=== PATIENT | male | born 1985 | race African-American/Black ===

== ENCOUNTER 2022-08-22 12:45 | Emergency (ER) | payer OTHER, SELFPAY ==
[2022-08-22 12:59] VITALS: BP 148/97; PULSE 74; RESP 16; TEMP 37.1; O2SAT 100
--- NOTE | 2022-08-22 13:00 | ED.DENTAL ---
HPI - Dental/Oral General Chief complaint: Dental/Oral Stated complaint: Back right tooth pain Source: patient and RN notes reviewed History of Present Illness HPI Narrative: 36-year-old male presents to urgent care with complaints of a right upper dental pain. Patient states has been hurting since yesterday. Patient reports associated facial swelling. Patient states the pain and is making him not want to eat or drink anything. Denies any fevers, chills, vomiting, trouble swallowing, trouble breathing. Patient has a dentist appointment but not for another 2 months. Some parts of this dictation were generated by voice recognition software and may contain typographical and/or grammatical inaccuracies. Related Data Allergies Allergy/AdvReac Type Severity Reaction Status Date / Time No Known Allergies Allergy Verified 08/22/22 12:52 Review of Systems Review of Systems: Pertinent positives and pertinent negatives per HPI. PMFSH Comments At the time of my signature, I reviewed and agree with the nursing past medical, surgical, social, and family history. There is no relevant family history pertinent to the patient complaint. Exam Narrative: GENERAL: This is a well-nourished, well-developed patient, in no apparent distress. HEAD: normocephalic, atraumatic. EYES: Sclera clear/white. Vision is grossly intact. EARS: External ears normal, auditory canals clear and without drainage. Hearing grossly intact. NOSE: External nose normal with no obvious nasal discharge, nares without redness, no rhinorrhea. THROAT: Mucous membranes moist, posterior pharynx clear. MOUTH: Tooth #32 Appears impacted as well edematous around the gums. NECK: Neck supple, non-tender without lymphadenopathy, masses or thyromegaly. CARDIOVASCULAR: Regular rate and rhythm without murmurs, gallops, or rubs. RESPIRATORY: Clear to auscultation. Breath sounds equal bilaterally. No wheezes, rales, or rhonchi. SKIN: warm, intact with no suspicious lesions or rash, good texture and turgor. NEURO: awake, alert, and oriented to person, place and time. There were no obvious focal neurologic abnormalities. Course Course Level of Care: Express Care Visit Vital Signs Vital signs: Vital Signs Temperature 98.8 F 08/22/22 12:59 Pulse Rate 74 08/22/22 12:59 Respiratory Rate 16 08/22/22 12:59 Blood Pressure 148/97 H 08/22/22 12:59 Pulse Oximetry 100 08/22/22 12:59 Oxygen Delivery Room Air 08/22/22 12:59 Temperature 98.8 F 08/22/22 12:59 Pulse Rate 74 08/22/22 12:59 Respiratory Rate 16 08/22/22 12:59 Blood Pressure 148/97 H 08/22/22 12:59 Pulse Oximetry 100 08/22/22 12:59 Oxygen Delivery Room Air 08/22/22 12:59 reviewed MDM - Dental/Oral MDM Narrative Medical decision making narrative: May call Ke @ [address] [address] hrs: Fri-Fri 8:30-5:00 Sat 8-no [phone] [place] take the antibiotics as directed. Follow up with a dentist as soon as possible. Differential Diagnosis Differential diagnosis: Likely gingival abscess, dental caries and dental abscess Critical Care Time Critical Care Time Critical Care Time: No Discharge Plan Discharge Clinical Impression: Dental abscess Patient Disposition: Home, Self-Care Condition: Stable Instructions: Antibiotic Form, Dental Abscess (ED) Additional Instructions: May call Ke @ [address] [address] hrs: Fri-Fri 8:30-5:00 Sat 8-no [phone] [place] take the antibiotics as directed. Follow up with a dentist as soon as possible. Prescriptions: New amoxicillin 500 mg capsule 500 mg PO Q12H Qty: 20 0RF lidocaine HCl [Lidocaine Viscous] 2 % solution 1 appl
== END 2022-08-22 13:17 | disposition home or self-care (01) ==
PROVIDERS: Emergency Provider Nurse Practitioner Family
DX: K04.7 Periapical abscess without sinus (principal)
CPT/HCPCS: 99213; G0463

== ENCOUNTER 2024-02-10 12:40 | Emergency (ER) | payer OTHER, SELFPAY ==
[2024-02-10 12:53] VITALS: BP 150/106; PULSE 75; RESP 20; TEMP 36.8; O2SAT 100
--- NOTE | 2024-02-10 13:39 | ED.DENTAL ---
HPI - Dental/Oral General Chief complaint: Dental/Oral Stated complaint: tooth pain Time Seen by Provider: 02/10/24 13:39 Source: patient, RN notes reviewed and old records reviewed Mode of arrival: ambulatory Limitations: no limitations History of Present Illness HPI Narrative: Patient presents with complaints of dental pain. He reports that he has poor dentition at baseline, had a tooth break about 4 days ago, has had pain and gingival swelling ever since. He does have a dental appointment scheduled for March 11, 2024. Has been taking Aleve for pain with moderate relief. He denies any fever, chills, sweats. He denies all other injury and trauma. He is not having in difficulty swallowing. There is no associated facial swelling. Related Data Allergies Allergy/AdvReac Type Severity Reaction Status Date / Time No Known Allergies Allergy Verified 02/10/24 12:47 Review of Systems Review of Systems: All systems reviewed & are unremarkable except as noted in HPI and below Constitutional: Constitutional: Reports no additional constitutional complaints ENT: Reports system reviewed and no additional complaints, except as documented and Reports dental pain Cardiovascular: Cardiovascular: Reports no additional cardiovascular complaints Respiratory: Respiratory: Reports no additional respiratory complaints Gastrointestinal: Gastrointestinal: Reports no additional gastrointestinal complaints PMFSH Comments At the time of my signature, I reviewed and agree with the nursing past medical, surgical, social, and family history. There is no relevant family history pertinent to the patient complaint. Exam Const: General: cooperative, no acute distress, alert and awake Orientation/consciousness: oriented to person, oriented to place and oriented to time HENMT: Head: normal to inspection Ears: TM's normal bilaterally Mouth: Yes moist mucous membranes Teeth and gingiva: fair dentition Teeth image: 1. Both teeth are decayed, broken, associated gingival swelling Throat: posterior oropharynx normal Resp: Effort & Inspection: normal respiratory effort and able to speak in complete sentences Auscultation: clear to auscultation bilaterally, no crackles, no rales, no rhonchi and no wheezes Cardio: Palpation: normal PMI Rate: regular rate Rhythm: regular rhythm Heart sounds: S1 normal heart sound present and S2 normal heart sound present Neuro: General: oriented to person, oriented to place and oriented to time Cranial nerves: Yes CN's II-XII intact bilaterally Psych: Appearance: grossly normal Thought process: Normal thought process present Insight: Good insight present (Psych) Judgement: Good judgement present (Psych) Course Course Level of Care: Express Care Visit Vital Signs Vital signs: Vital Signs Temperature 98.2 F 02/10/24 12:53 Pulse Rate 75 02/10/24 12:53 Respiratory Rate 20 02/10/24 12:53 Blood Pressure 150/106 H 02/10/24 12:53 Pulse Oximetry 100 02/10/24 12:53 Oxygen Delivery Room Air 02/10/24 12:53 Temperature 98.2 F 02/10/24 12:53 Pulse Rate 75 02/10/24 12:53 Respiratory Rate 20 02/10/24 12:53 Blood Pressure 150/106 H 02/10/24 12:53 Pulse Oximetry 100 02/10/24 12:53 Oxygen Delivery Room Air 02/10/24 12:53 Reviewed MDM - Dental/Oral MDM Narrative Medical decision making narrative: Patient with dental injury and resulting infection. Able to manage her own secretions, no drooling or stridor. Nontoxic appearing. Stable for discharge home on p.o. antibiotics. Follow with dentist and primary care provider. Emergency department for new or worse symptoms. Discharge instructions reviewed with patient, as well as provided in writing per nursing staff. The instructions also include specific and strict return/GO TO THE ER as well as f/u information. All questions have been answered, and the patient deny any further questions with discharge and discharge plan. Some parts of this dictation were generated by voice recognition software and may contain typographical and/or grammatical inaccuracies. Differential Diagnosis Differential diagnosis: Likely gingival abscess, dental caries, toothache, dental abscess and fracture of tooth Medical Records Attestation: I reviewed the patient's medical records. Discharge Plan Discharge Clinical Impression: Dental infection, Elevated blood pressure reading Patient Disposition: Home, Self-Care Condition: Stable Instructions: Antibiotic Form, Dental Abscess (ED) Additional Instructions: Take medications as prescribed. Follow-up with dentist and primary care provider. Emergency department for any new or worse symptoms Patient Language: Greenlandic Prescriptions: New amoxicillin 875 mg tablet 875 mg PO Q12H Qty: 20 0RF Follow-up/Referrals: PHYSICIAN,FILTER TANK TENDER HELPER HEAD [Primary Care Provider] - Stand Alone Forms: Work/School Release IP Time of Disposition: 13:45
== END 2024-02-10 13:57 | disposition home or self-care (01) ==
PROVIDERS: Emergency Provider Nurse Practitioner Family
DX: K04.7 Periapical abscess without sinus (principal); R03.0 Elevated blood-pressure reading, without diagnosis of hypertension
CPT/HCPCS: 99213; G0463

== ENCOUNTER 2024-05-18 12:27 | Emergency (ER) | payer OTHER, SELFPAY ==
[2024-05-18 12:31] VITALS: BP 170/95; PULSE 68; RESP 16; TEMP 36.9; O2SAT 100
--- NOTE | 2024-05-18 12:34 | ED_ITS ---
HPI - Dental/Oral General Chief complaint: Dental/Oral Stated complaint: Dental Pain Time Seen by Provider: 05/18/24 12:34 Source: patient, RN notes reviewed and old records reviewed Mode of arrival: ambulatory Limitations: no limitations History of Present Illness HPI Narrative: Patient presents with complaints of right lower dental pain. Patient admits that he has poor dentition at baseline, has had been having multiple dental problems over the past 4 months. He does have an appointment scheduled with a dentist, but this is approximately 6 weeks away. He reports right lower dental pain became much worse yesterday. He has been taking ibuprofen with minimal relief. He has no associated facial swelling, does report some discharge from the gingiva Related Data Home Medications ?Medication ?Instructions ?Recorded ?Confirmed ?Last Taken ?Type No Home Medications 05/18/24 05/18/24 Unknown History Allergies Allergy/AdvReac Type Severity Reaction Status Date / Time No Known Allergies Allergy Verified 05/18/24 12:32 Review of Systems Review of Systems: All systems reviewed & are unremarkable except as noted in HPI and below Constitutional: Constitutional: Reports no additional constitutional complaints ENT: Reports system reviewed and no additional complaints, except as documented and Reports dental pain Cardiovascular: Cardiovascular: Reports no additional cardiovascular complaints Respiratory: Respiratory: Reports no additional respiratory complaints Gastrointestinal: Gastrointestinal: Reports no additional gastrointestinal complaints PMFSH Comments At the time of my signature, I reviewed and agree with the nursing past medical, surgical, social, and family history. There is no relevant family his tory pertinent to the patient complaint. Exam Const: General: cooperative, no acute distress, alert and awake Orientation/consciousness: oriented to person, oriented to place and oriented to time HENMT: Head: normal to inspection Mouth: Yes moist mucous membranes Teeth and gingiva: caries, gingiva abnormal with purulent discharge (Right lower, no associated facial swelling) and poor dentition Resp: Effort & Inspection: normal respiratory effort and able to speak in complete sentences Auscultation: clear to auscultation bilaterally, no crackles, no rales, no rhonchi and no wheezes Cardio: Palpation: normal PMI Rate: regular rate Rhythm: regular rhythm Heart sounds: S1 normal heart sound present and S2 normal heart sound present Neuro: General: oriented to person, oriented to place and oriented to time Cranial nerves: Yes CN's II-XII intact bilaterally Psych: Appearance: grossly normal Thought process: Normal thought process present Insight: Good insight present (Psych) Judgement: Good judgement present (Psych) Course Course Level of Care: Express Care Visit Vital Signs Vital signs: Reviewed MDM - Dental/Oral MDM Narrative Medical decision making narrative: Patient in no distress, does have significant dental infection, no associated facial or neck swelling. Scant purulence drainage from the gingiva right lower. Start clindamycin, prescription strength ibuprofen. Keep scheduled dental appointment. Discharge instructions reviewed with patient, as well as provided in writing per nursing staff. The instructions also include specific and strict return/GO TO THE ER as well as f/u information. All questions have been answered, and the patient deny any further questions with discharge and discharge plan. Some parts of this dictation were generated by voice recognition software and may contain typographical and/or grammatical inaccuracies. Differential Diagnosis Differential diagnosis: Likely gingival abscess, dental caries and dental abscess Medical Records Attestation: I reviewed the patient's medical records. Discharge Plan Discharge Clinical Impression: Dental infection Patient Disposition: Home, Self-Care Condition: Stable Instructions: Antibiotic Form, Dental Abscess (ED) Additional Instructions: Take all medications as prescribed. Follow with primary care provider and dentist. Emergency department for new or worse symptoms Patient Language: Georgian Prescriptions: New clindamycin HCl [Cleocin HCl] 300 mg capsule 300 mg PO TID Qty: 30 0RF ibuprofen 800 mg tablet 800 mg PO TID PRN (Reason: pain) Qty: 30 0RF No Action No Home Medications Follow-up/Referrals: PHYSICIAN,TRANSPORTATION CLERK [Primary Care Provider] - Time of Disposition: 13:05
== END 2024-05-18 13:10 | disposition home or self-care (01) ==
PROVIDERS: Emergency Provider Nurse Practitioner Family
DX: K04.7 Periapical abscess without sinus (principal)
CPT/HCPCS: 99213; G0463

== ENCOUNTER 2024-06-21 14:45 | Emergency (ER) | payer OTHER, SELFPAY ==
[2024-06-21 14:54] VITALS: BP 192/117; PULSE 65; RESP 19; TEMP 36.2; O2SAT 100
[2024-06-21 15:05] VITALS: BP 184/114
--- NOTE | 2024-06-21 15:09 | ED.DENTAL ---
HPI - Dental/Oral General Chief complaint: Dental/Oral Stated complaint: dental pain Time Seen by Provider: 06/21/24 14:57 Source: patient and RN notes reviewed Mode of arrival: ambulatory Limitations: no limitations History of Present Illness HPI Narrative: Patient presents today complaining of right posterior lower dental pain. Currently rates his pain 7/10 and has been taking ibuprofen with minimal relief. Patient was seen last month for similar symptoms and was placed on clindamycin. He does have an appointment in June with his dentist. Upon arrival, patient's blood pressure is quite elevated and he does not have a diagnosis of hypertension, however, he has been taking quite a bit of ibuprofen. Related Data Allergies Allergy/AdvReac Type Severity Reaction Status Date / Time No Known Allergies Allergy Verified 06/21/24 15:06 Review of Systems Review of Systems: CONSTITUTIONAL: Denies body aches, fever, chills, or sweats. EYES: Denies visual changes, redness, or discharge. ENT: Denies rhinorrhea, congestion, sore throat, or otalgia.+ dental pain CARDIOVASCULAR: Denies chest pain, palpitations, or edema. RESPIRATORY: Denies cough or dyspnea. GASTROINTESTINAL: Denies abdominal pain, nausea, vomiting, or diarrhea. GENITOURINARY: Denies dysuria or hematuria. SKIN: Denies rash, itching, or wounds. MUSCULOSKELETAL: Denies back pain, joint pain, or myalgia. NEUROLOGIC: Denies headache, numbness, tingling, or weakness. PSYCH: Denies depression or anxiety. PMFSH Comments At time of signature, I have reviewed and agree with nursing past medical, surgical, social and family history unless otherwise noted. Please see nursing chart for further information. There is no relevant family history pertinent to the presenting complaint Exam Narrative: GENERAL: Well-appearing, well-nourished, and in no acute distress. HEAD: Normocephalic, atraumatic. EYES: EOMI. No redness or drainage. Conjunctivae normal. ENT: Mucous membranes pink and moist. Patient has large cavity in tooth number 31 no surrounding erythema or edema of the gumline. No obvious periapical abscess. No facial swelling, trismus. NECK: Normal AROM. Supple. No lymphadenopathy. CHEST: No respiratory distress. EXTREMITIES: Normal range of motion. No edema. SKIN: Warm, dry, no rash. Capillary refill normal. Normal skin turgor. NEURO: No focal deficits. Alert and oriented x3. Gait steady. PSYCH: Normal affect. No signs of depression or anxiety. Course Course Level of Care: Express Care Visit Vital Signs Vital signs: Vital Signs Temperature 97.2 F L 06/21/24 14:54 Pulse Rate 65 06/21/24 14:54 Respiratory Rate 19 06/21/24 14:54 Blood Pressure 192/117 H 06/21/24 14:54 Pulse Oximetry 100 06/21/24 14:54 Oxygen Delivery Room Air 06/21/24 14:54 Temperature 97.2 F L 06/21/24 14:54 Pulse Rate 65 06/21/24 14:54 Respiratory Rate 19 06/21/24 14:54 Blood Pressure 184/114 H 06/21/24 15:05 Pulse Oximetry 100 06/21/24 14:54 Oxygen Delivery Room Air 06/21/24 14:54 Reviewed MDM - Dental/Oral MDM Narrative Medical decision making narrative: Patient will be treated with a course of amoxicillin for presumed infected dental caries. He will follow-up with his dentist as scheduled in June. Patient's blood pressure is quite elevated, but he is taking ibuprofen and is experiencing some pain at this time. He has no red flag symptoms to include headache, dizziness, vision changes, chest pain or shortness of breath. He has been instructed to go to the ER if he develops any additional concerning symptoms for his blood pressure. Patient agrees with plan. Anticipatory guidance given. Differential Diagnosis Differential diagnosis: Likely gingival abscess, dental caries, toothache and dental abscess Critical Care Time Critical Care Time Critical Care Time: No Discharge Plan Discharge Clinical Impression: Dental caries Patient Disposition: Home, Self-Care Condition: Stable Instructions: Antibiotic Form, Dental Abscess (ED) Additional Instructions: Please take the amoxicillin as prescribed until gone. Use the viscous lidocaine on a Q-tip on your tooth to help with discomfort as well. As discussed, if you develop any additional symptoms to include headache, shortness of breath, chest pain, vision changes, dizziness or lightheadedness, please go to the ER immediately for further evaluation and treatment. Follow-up with your dentist as soon as possible. If high blood pressure persists, please follow-up with your PCP. Your blood pressure was elevated above 120/80 today at Urgent Care. This puts you above the threshold for follow up. Please schedule a followup visit with your personal physician as soon as possible, for further evaluation and treatment. Even blood pressure exceeding 120/80 may indicate pre-hypertension. Patient Language: Jamaican Prescriptions: New amoxicillin 875 mg tablet 875 mg PO Q12H 10 Days Qty: 20 0RF lidocaine HCl [Lidocaine Viscous] 2 % solution 1 applic mucous membrane TID PRN (Reason: pain) Qty: 15 0RF Rx Instructions: Apply to affected tooth TID PRN Follow-up/Referrals: PHYSICIAN,MIDDLEWARE DEVELOPER [Primary Care Provider] - Time of Disposition: 15:16
== END 2024-06-21 15:21 | disposition home or self-care (01) ==
PROVIDERS: Emergency Provider Nurse Practitioner
DX: K02.9 Dental caries, unspecified (principal)
CPT/HCPCS: 99213; G0463

== ENCOUNTER 2024-12-18 08:37 | Emergency (ER) | payer OTHER, SELFPAY ==
--- NOTE | 2024-12-18 08:40 | ED.GENADULT ---
HPI - General Adult General Chief complaint: Dental/Oral Stated complaint: tooth pain Time Seen by Provider: 12/18/24 08:41 Source: patient Mode of arrival: ambulatory Limitations: no limitations History of Present Illness HPI narrative: 38-year-old male patient presents to the [facility] with complaints of tooth pain to the right lower back oral cavity. Patient states it has been painful for the last 2 days states he has been taking Advil and ibuprofen for the pain. Patient states the tooth is broken and he went to his dentist about 2 months ago and they were wanting to pull it but he did not have the money at the time. Denies any fevers body aches or chills at this time. Related Data Allergies Allergy/AdvReac Type Severity Reaction Status Date / Time No Known Allergies Allergy Verified 12/18/24 08:52 Review of Systems Review of Systems: CONSTITUTIONAL: Denies fever, chills, or sweats. EYES: Denies visual changes, redness, or discharge. ENT: Denies rhinorrhea, congestion, sore throat, or otalgia. Positive right lower dental pain x2 days CARDIOVASCULAR: Denies chest pain, palpitations, or edema. RESPIRATORY: Denies cough or dyspnea. GASTROINTESTINAL: Denies abdominal pain, nausea, vomiting, or diarrhea. GENITOURINARY: Denies dysuria or hematuria. SKIN: Denies rash or itching. MUSCULOSKELETAL: Denies back pain, joint pain, or myalgia. NEUROLOGIC: Denies headache, numbness, or weakness. PSYCHIATRIC: Denies anxiety or depression. PMFSH Comments At the time of my signature I agree with nursing past medical history, surgical, social, and family history. There is no relevant family history pertinent to the presenting complaint. Exam Narrative: GENERAL: Well-appearing, well-nourished, and in no acute distress. HEAD: Normocephalic, atraumatic. EYES: PERRLA and EOMI. ENT: Nares clear, no rhinorrhea or epistaxis. Mucous membranes moist. Patient has a right lower fractured molar with surrounding erythema, tenderness to the gum area. There is no swelling noted to the cheek at this time. No obvious drainage noted NECK: Supple. No lymphadenopathy CHEST: Clear to auscultation. No respiratory distress. HEART: Regular rate and rhythm. No murmur heard. Normal peripheral pulses. ABDOMEN: Soft, nontender, nondistended, normal active bowel sounds. EXTREMITIES: Normal range of motion. No edema. SKIN: Warm, dry, no rash. NEURO: No focal deficits. Alert and oriented x3. Course Course Level of Care: Express Care Visit Vital Signs Vital signs: Vital Signs Temperature 36.7 C 12/18/24 08:45 Pulse Rate 62 12/18/24 08:45 Respiratory Rate 12/18/24 08:45 Blood Pressure 170/97 H 12/18/24 08:45 Pulse Oximetry 100 12/18/24 08:45 Oxygen Delivery Room Air 12/18/24 08:45 Temperature 36.7 C 12/18/24 08:45 Pulse Rate 62 12/18/24 08:45 Respiratory Rate 12/18/24 08:45 Blood Pressure 170/97 H 12/18/24 08:45 Pulse Oximetry 100 12/18/24 08:45 Oxygen Delivery Room Air 12/18/24 08:45 Vital signs reviewed. The patient has been informed that they may have pre-hypertension or Hypertension based on a BP reading in the department. I recommend that the patient call the primary care provider listed on their discharge instructions or a physician of their choice this week to arrange follow up for further evaluation of possible pre-hypertension or Hypertension Medical Decision Making MDM Narrative Medical decision making narrative: Plan of care for patient is discharge home with oral antibiotics for suspected dental infection. A handout was provided to the patient today for follow-up and highly encouraged patient to get the tooth removed. Discussed with patient if his symptoms worsen specifically if he starts having fevers, body aches, chills highly recommend that he goes to the ER for further evaluation treatment because this can get worse. Patient verbalized understanding denies any other questions or concerns at this time. Differential Diagnosis Differential Diagnosis: Differential diagnosis: Dental caries, periodontal disease, avulsed tooth, tooth infections, mandibular infection, Jus's angiana, upper tooth infection, dry socket, gingivitis, acute necrotizing ulcerative gingivitis, sialolithiasis. Vital Signs Vital Signs: Vital Signs Temperature 36.7 C 12/18/24 08:45 Pulse Rate 62 12/18/24 08:45 Respiratory Rate 12/18/24 08:45 Blood Pressure 170/97 H 12/18/24 08:45 Pulse Oximetry 100 12/18/24 08:45 Oxygen Delivery Room Air 12/18/24 08:45 Temperature 36.7 C 12/18/24 08:45 Pulse Rate 62 12/18/24 08:45 Respiratory Rate 20 12/18/24 08:45 Blood Pressure 170/97 H 12/18/24 08:45 Pulse Oximetry 100 12/18/24 08:45 Oxygen Delivery Room Air 12/18/24 08:45 Critical Care Time Critical Care Time Critical Care Time: No Discharge Plan Discharge Clinical Impression: Fracture of tooth, Dental infection Patient Disposition: Home Condition: Stable Instructions: Antibiotic Form, Toothache (ED), Mouth Care (ED) Additional Instructions: Antibiotic as directed Avoid temperature extremes May apply heat or ice to the face Gentle brushing and flossing Alternate Tylenol and ibuprofen as needed for pain Follow-up with the dentist as soon as possible--see the list provided Patient Language: Romanian Prescriptions: New amoxicillin-pot clavulanate 875-125 mg tablet 1 tablet PO Q12H 7 Days Qty: 14 0RF Follow-up/Referrals: PHYSICIAN,ASSISTANT REAL ESTATE MANAGER [Primary Care Provider, Internal Medicine] Time of Disposition: 08:57
[2024-12-18 08:45] VITALS: BP 170/97; PULSE 62; RESP 20; TEMP 36.7; O2SAT 100
== END 2024-12-18 09:02 | disposition home or self-care (01) ==
PROVIDERS: Emergency Provider Nurse Practitioner Family
DX: S02.5XXA Fracture of tooth (traumatic), initial encounter for closed fracture (principal); X58.XXXA Exposure to other specified factors, initial encounter; K04.7 Periapical abscess without sinus
CPT/HCPCS: 99213; G0463